=== PATIENT | female | born 1960 | race Caucasian/White ===

== ENCOUNTER 2018-05-25 03:06 | Emergency (ER) | payer OTHER ==
[2018-05-25] MEDS ORDERED: ONDANSETRON HCL 4 MG TAB.RAPDIS PO STA (03:25)
[2018-05-25] MEDS ORDERED: HYDROcodone /APAP 5/325 1 EACH TABLET PO STA (03:25)
--- NOTE | 2018-05-25 03:50 | Diagnostic Imaging Report ---
ROMINA LOUISE [facility] [id number] [facility] [address] [address] Report Submission Date: May 25, 2018 3:48:49 AM PERSONAL DEVELOPMENT EDUCATOR Patient Study Name: KELSEY CHRISTIAN Date: May 25, 2018 3:22:56 AM PERSONAL DEVELOPMENT EDUCATOR Modality Type: DX Gender: F Description: LOWER EXTREMITY : 60 Institution: [facility] Physician: ROMINA LOUISE Right knee three views History: Fall. 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 Mild lateral and patellofemoral compartment osteoarthritis is observed. There is no fracture, dislocation, loosening, or joint effusion. Electronically signed on May 25, 2018 3:48:49 AM PERSONAL DEVELOPMENT EDUCATOR by: Parker CLAZADA
--- NOTE | 2018-05-25 04:14 | ED Physician Documentation ---
Lower Extremity Problem - HISTORIAN Historian: patient - HPI Stated Complaint: rt knee injury Chief Complaint: Lower Extremity Injury Additional Information: Intro self as COMMERCIAL CREDIT ANALYST. 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 pt reports pain 8/10 aching sharp and worse with ambulation. denies other symptoms or injury. pt denies current chest pain, dyspnea, syncope/near syncope, headache, dizziness, visual disturbances, n/v/d, fever/chills, rash, sick contacts, dysuria, melena or hematochezia, bleeding or easy bruising, change in bowel or bladder function, no recent weight loss/gain, anxiety or depression. ROS Negative unless otherwise specified. - ROS CONST: no problems - PAST HX Past History: other (migraines ) PE Risk Factors: other Other History: other (hypertension hyperlipidemia ) Surgeries/Procedures: appendectomy, other (tonsilectomy ) Allergies/Adverse Reactions: Allergies Allergy/AdvReac Type Severity Reaction Status Date / Time No Known Allergies Allergy Verified 05/25/18 03:38 Home Medications: Ambulatory Orders Medication Instructions Recorded Amitriptyline HCl [Elavil] 25 mg PO D 05/25/18 Aspirin EC [Ecotrin] 81 mg PO D 05/25/18 Losartan Potassium [Cozaar] 100 mg PO D 05/25/18 Metoprolol Tartrate [Lopressor] 50 mg PO BID 05/25/18 Pravastatin Sodium [Pravachol] 10 mg PO D 05/25/18 - SOCIAL HX Smoking History: less than 1 pack/day Alcohol Use: none Drug Use: none - FAMILY HX Family History: no significant history - VITAL SIGNS Vital Signs: Vital Signs Temp Pulse Resp BP Pulse Ox 98 F 69 16 134/57 97 05/25/18 03:07 05/25/18 04:29 05/25/18 04:29 05/25/18 04:29 05/25/18 04:29 - REVIEWED ASSESSMENTS Nursing Assessment Reviewed: Yes Vitals Reviewed: Yes ED Results Lab/Radiology - Radiology Radiology Impressions: Report Submission Date: May 25, 2018 3:48:49 AM BIOMEDICAL SERVICE ENGINEER Patient Study Name: KELSEY CHRISTIAN Date: May 25, 2018 3:22:56 AM BIOMEDICAL SERVICE ENGINEER Modality Type: DX Gender: F Description: LOWER EXTREMITY : 60 Institution: [facility] Physician: ROMINA LOUISE Right knee three views History: Fall. 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 Mild lateral and patellofemoral compartment osteoarthritis is observed. There is no fracture, dislocation, loosening, or joint effusion. Electronically signed on May 25, 2018 3:48:49 AM BIOMEDICAL SERVICE ENGINEER by: Parker Guan - Orders Orders: ED Orders Category Date Time Status Apply ice to affected area NOW Care 05/25/18 03:10 Active KNEE 3 VIEWS [RAD] Stat Exams 05/25/18 Completed HYDROcodone /APAP 5/325 [[place] 5/325] Med 05/25/18 03:25 Discontinued 1 each PO NOW STA Ondansetron HCl Rapdis [Zofran Odt] Med 05/25/18 03:25 Discontinued 4 mg PO NOW STA Lower Extremity Problem - EXAM General Appearance: no distress Hips: bilateral hip: non-tender, normal inspection, normal range of motion, no evidence of injury Legs: bilateral: non-tender, normal inspection, normal range of motion, no evidence of injury Knees: right: bone tenderness, pain, soft tissue tenderness, left: non-tender, normal inspection, normal range of motion, no evidence of injury Ankle: bilateral: non-tender, normal inspection, normal range of motion, no evidence of injury Foot: bilateral foot: non-tender, normal inspection, normal range of motion, no evidence of injury Neuro/Tendon: normal sensation, normal motor functions, normal tendon functions, no evidence tendon injury RESPIRATORY: no resp distress CVS: equal pulses JOINT: antalgic gait VASCULAR: no vascular compromise, pulses full/equal NEURO/PSYCH: oriented X3, CN's nml as tested, motor nml, sensation nml SKIN: normal color, warm/dry, NR, INT, PAL, DR BACK: normal inspection, no CVA tenderness Discharge Clincal Impression: Strain of knee Qualifiers: Encounter type: initial encounter Laterality: left Qualified Code(s): S86.912A - Strain of unspecified muscle(s) and tendon(s) at lower leg level, left leg, initial encounter Referrals: Rommel Restrepo MD [Primary Care Provider] - 2 Days Additional Instructions: Rest Ice for 20 min intervals follow up with orthopedics/ primary care in 2-3 weeks if you are not improving as expected. ibuprofen for pain/inflammation Return if worse. Wear compression sleeve seek medical care immediately if difficult to wake or weakness, difficulty breathing, feeling faint or fainting, increased rash, chest pain, shortness of breath, or fever not controlled by tylenol/motrin or any concern PLEASE UNDERSTAND THAT THIS IS AN EMERGENCY EVALUATION FOR YOUR COMPLAINT AND BY NATURE IS LIMITED AND NOT A SUBSTITUTE FOR ONGOING MEDICAL CARE. EVEN THOUGH TEST RESULTS AND TREATMENT PLAN WERE EXPLAINED THERE MAY BE A NEED FOR ADDITIONAL TESTING TO FULLY DETERMINE THE EXTENT OF YOUR ILLNESS/INJURY/OR CONCERN SO YOU SHOULD CONTACT AND OR ESTABLISH WITH A PRIMARY CARE PROVIDER (OR REFERRAL DOCTOR IF APPLICABLE) FOR AN APPOINTMENT SOON POSSIBLE Condition: Good Disposition: 01 HOME, SELF-CARE Decision to Admit: NO Date of Decison to Admit: 05/25/18 Decision Time: 04:12
[2018-05-25 04:32] VITALS: BP 134/57
== END 2018-05-25 04:25 | disposition home or self-care (01) ==
LOC: ED 03:06
DX: S86.911A Strain of unspecified muscle(s) and tendon(s) at lower leg level, right leg, initial encounter (principal); W18.2XXA Fall in (into) shower or empty bathtub, initial encounter; Y93.E1 Activity, personal bathing and showering; Y92.9 Unspecified place or not applicable
CPT/HCPCS: 73562; 99282; 99283; A9270

== ENCOUNTER 2019-05-03 05:26 | Emergency (ER) | payer OTHER ==
[2019-05-03] MEDS ORDERED: 0.9 % SODIUM CHLORIDE 1,000 ML IV ONE (05:39)
--- NOTE | 2019-05-03 05:42 | ED Physician Documentation ---
Fall - HISTORIAN Historian: patient - HPI Stated Complaint: fall Chief Complaint: Fall Additional Information: Patient presents to ED after falling. Patient states her IBS has been acting up causing diarrhea and cramping. She states she was in the bathroom and fell. She hit her chin causing a 2 cm laceration. Patient denies any blood/dark stools. Onset: just prior to arrival Where: home Context: became dizzy, fell from standing r: mild Associated Symptoms:: brief (seconds) Location of Pain/Injury: face Injury to Right Extremity: none Injury to Left Extremity: none - ROS CONST: no problems NEURO: denies: dizziness MS/SKIN/LYMPH: denies: weakness EYES/ENT: denies: problems with vision CVS/RESP: denies: chest pain, shortness of breath GI/: denies: nausea, vomiting - PAST HX Past History: none Allergies/Adverse Reactions: Allergies Allergy/AdvReac Type Severity Reaction Status Date / Time Sulfa (Sulfonamide Allergy Verified 05/03/19 05:44 Antibiotics) PCN Allergy Uncoded 05/03/19 05:44 Home Medications: Ambulatory Orders Medication Instructions Recorded Amitriptyline HCl [Elavil] 25 mg PO D 05/25/18 Aspirin EC [Ecotrin] 81 mg PO D 05/25/18 Losartan Potassium [Cozaar] 100 mg PO D 05/25/18 Metoprolol Tartrate [Lopressor] 50 mg PO BID 05/25/18 Pravastatin Sodium [Pravachol] 10 mg PO D 05/25/18 Nifedipine [Nifedipine ER] 30 mg PO DAILY 05/03/19 - SOCIAL HX Smoking History: non-smoker Alcohol Use: none Drug Use: none - FAMILY HX Family History: none - VITAL SIGNS Vital Signs: Vital Signs Temp Pulse Resp BP Pulse Ox 134/57 05/25/18 04:29 - REVIEWED ASSESSMENTS Nursing Assessment Reviewed: Yes Vitals Reviewed: Yes Procedures Wound Location: face (chin) Wound Length: 2 cm Wound's Depth, Shape: superficial, linear Wound Explored: clean Betadine Prep?: No Wound Debrided: minimal Wound Repaired With: Dermabond Sterile Dressing Applied?: No Splint Applied?: No Sling Applied?: No Progress - Progress Progress: 0604 Patient declined pain meds or steroids to treat IBS. ED Results Lab/Radiology - Lab Results Lab Results: UA - glucose neg, bilirubin +1, sp grav 1.025, Blood neg, protein +1, nitrate neg, leukocytes trace. - Radiology Radiology Impressions: Report Submission Date: May 03, 2019 6:42:10 AM STRUCTURAL ARCHITECT Patient Study Name: KELSEY CHRISTIAN Date: May 03, 2019 6:12:19 AM STRUCTURAL ARCHITECT Modality Type: CT\SR Gender: F Description: CT BRAIN W/O CONTRAST : 60 Institution: [facility] Physician: ES MODI CT head without contrast History: Fall, head injury Technique: Images through the brain were obtained without contrast. Findings: No mass, midline shift, hydrocephalus or hemorrhage is present. The ventricles are normal. There is mild lucency in the periventricular white matter, consistent with microvascular ischemic change. No extra-axial fluid collection is identified. Impression: No acute intracranial process. Electronically signed on May 03, 2019 6:42:10 AM STRUCTURAL ARCHITECT by: Vivek Olmos - Orders Orders: ED Orders Category Date Time Status Place IV Lock 1T Care 05/03/19 05:39 Ordered Skin Adhesive NOW Care 05/03/19 05:45 Ordered CBC/PLATELET/DIFF Routine Lab 05/03/19 Ordered CMP Routine Lab 05/03/19 Ordered NORMAL SALINE @ 1000 MLS/HR ( 1000ml BOLUS) Med 05/03/19 05:39 Ordered 0.9 % Sodium Chloride [Normal Saline] 1,000 ml IV Q1H Fall Physical Exam - Physical Exam General Appearance: no acute distress, alert Head: trauma (2 cm laceration to chin) Neck: painless ROM Eye: HELGA, EOMI ENT: no dental injury Resp/CVS: chest non-tender, breath sounds nml, no resp. distress Abdomen: soft, normal bowel sounds Neuro: oriented x3, mood/affect nml Skin: color nml, no rash Back: normal inspection, no vertebral tenderness Extremities: atraumatic, pelvis stable Joint: nml ROM - Sibley Coma Score Eyes Open: Spontaneous Speech: Oriented Motor: Obeys Commands Discharge Clincal Impression: Laceration of chin Qualifiers: Encounter type: initial encounter Qualified Code(s): S01.81XA - Laceration without foreign body of other part of head, initial encounter Referrals: Rommel Restrepo MD [Primary Care Provider] - 2 Days Additional Instructions: 1. Skin glue will wear off in 7-10 days. Keep area dry 2. Do not apply lotions, ointments or creams to skin glue 3. Drink plenty of fluids to maintain proper hydration. Avoid caffeine and alcohol 4. Follow up with PCP within 5 days 5. Return to ER for new or worsening symptoms Condition: Stable Decision to Admit: NO Date of Decison to Admit: 05/03/19 Decision Time: 06:47
[2019-05-03 06:32] LABS: BASOPHILS % 0.7 % (0.0-1.5); NEUTROPHILS # 3.4 # k/uL (1.4-7.7)
[2019-05-03 06:38] LABS: eGFR (Non-African) > 60
[2019-05-03] MEDS ORDERED: POTASSIUM CHLORIDE 20 MEQ TABLET.ER PO ONE (06:40)
--- NOTE | 2019-05-03 06:46 | Diagnostic Imaging Report ---
PATIENT MR#: [id number] PATIENT PATIENT NAME: KELSEY CHRISTIAN DATE OF : 1960 REFERRING PHYSICIAN: Phyllis Good EXAM DATE: 05/03/2019 ACCESSION NUMBER: [id number] EXAM DESCRIPTION: CT BRAIN W/O CONTRAST CT head without contrast History: Fall, head injury Technique: Images through the brain were obtained without contrast. Findings: No mass, midline shift, hydrocephalus or hemorrhage is present. The ventricles are normal. There is mild lucency in the periventricular white matter, consistent with microvascular ischemic change. No extra- axial fluid collection is identified. Impression: No acute intracranial process. Read by: Dr. Vivek Olmos Transcribed by: Transcribed Date: Electronically signed by: Dr. Vivek Olmos Date signed: 05/03/2019 6:46:12 AM
[2019-05-03 06:58] VITALS: BP 111/46
[2019-05-04 07:01] LABS: OCCULT BLOOD,URINE NEGATIVE (NEGATIVE); UROBILINOGEN URINE 0.2 Eu (0.2-1.0)
== END 2019-05-03 06:55 | disposition home or self-care (01) ==
LOC: ED 05:26
DX: S01.81XA Laceration without foreign body of other part of head, initial encounter (principal); W19.XXXA Unspecified fall, initial encounter; Y92.002 Bathroom of unspecified non-institutional (private) residence as the place of occurrence of the external cause
CPT/HCPCS: 70450; 80053; 81002; 85025; 96360; 99282; 99283; A9270; J7030; S1016